=== PATIENT | female | born 1970 | race Caucasian/White ===

== ENCOUNTER → 2017-08-01 | Outpatient (CLI) | payer BC ==
--- NOTE | 2017-08-02 04:26 | HKNOTE ---
DATE OF SERVICE: 08/01/2017 MAIN COMPLAINT: Pain in the right knee. HISTORY OF MAIN COMPLAINT: The patient is a 47-year-old female, who complains of pain in her right knee which had a sudden onset about 1-1/2 months ago. There was no history of injury. She was simply walking out of the bank when there was a sudden onset of pain, which felt "like somebody stuck a knife in my knee." It was very difficult for her to walk. She saw Dr. Rosario last week. He obtained x-rays and told her that a large part of her problem was the arthritis in her knee. He gave her a cortisone injection into the knee. The patient had previously seen her kiln fireman, Dr. Liliam Tan, who ordered an MRI scan of the knee. The patient gets pain in the knee with every step that she takes. The knee feels unstable at least once a day. The knee swells. There has not been any locking. The pain is particularly aggravated by walking down stairs, and that is also when the knee feels particularly unstable. Her pain is aggravated by walking, weightbearing, and stair climbing. She is not taking any medications for the pain. She does not have a history of problems with the lower back. She has been diagnosed with sciatica, but has never had an MRI scan of the spine. She gets acupuncture treatments for her back. She sometimes gets numbness and tingling in her feet. She can't walk more than a block at a time without stopping. She is not using a walking aid. I guess she does limp all the time. PAST ORTHOPEDIC HISTORY: Negative. PRIOR CORTISONE INTAKE: One cortisone injection, as noted above. ALCOHOL INTAKE: None. OTHER JOINT PROBLEMS: None. BLOOD TESTS: None. PRIOR INJURIES TO HIPS OR KNEES: None. 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 PAST MEDICAL HISTORY: Hypertension PAST SURGICAL HISTORY: Appendectomy and ectopic . DRUG ALLERGIES: None. MEDICATIONS: None listed. FAMILY HISTORY: Noncontributory. SYSTEMS REVIEW: Prone to heartburn, tingling sensations in the lower right leg and foot. PATIENT CONSUMER MARKETER: Amanda Byrnes. PHYSICAL EXAMINATION: GENERAL: An overweight 47-year-old female. She is otherwise fit looking. VITAL SIGNS: Height 5 foot 5; weight 135 pounds. Blood pressure 135/100 and temperature 98.3. GAIT: The patient's gait is quite markedly antalgic. She walks without a walking aid. HIP EXAMINATION: Both hips have a full range of motion without pain. RIGHT KNEE EXAMINATION: Extension is full but painful. Flexion is full; 1+ effusion. Marked tenderness over the medial joint line. IMAGING: X-rays of the right knee (brought with her) show moderate narrowing of the medial joint space of the right knee. An MRI scan of the right knee obtained on 07/12/2017, is reported by the radiologist as showing "complex tear of the posterior horn of medial meniscus." The tear involves meniscal root attachment of posterior horn of the meniscus as well as abnormal signal intensity reaching the inferior articulating surface of the foot at the peripheral zone. DISCUSSION: The suddenness of onset of this patient's pain and instability suggests that this is more likely to be a torn meniscus than a simple arthritic problem. The MRI pictures were reviewed, and these seem to be fairly convincing. DIAGNOSES: 1. Degenerative osteoarthritis of the right knee. 2. Probable torn medial meniscus of the right knee. 3. Hypertension. MANAGEMENT: The patient is advised that, in my opinion, she will need to have an arthroscopic operation on the knee. The surgery and some of the major possible complications were discussed with her in a fair amount of detail. The procedure and postoperative course were discussed with her in a fair amount of detail. The patient's surgery will be scheduled by my health center assistant, Gumaro , in the very near future. The patient has difficulty getting off work, and she will have to work with Gumaro to pick a time that would be appropriate for her. Dictated By: Jose Juan Garcia MD /aury/freda /Document#: [id number]
== END | disposition home or self-care (01) ==
LOC: HKI 16:43
DX: M25.561 Pain in right knee (principal); M17.11 Unilateral primary osteoarthritis, right knee; I10 Essential (primary) hypertension
CPT/HCPCS: G0463

== ENCOUNTER → 2017-12-01 | Outpatient (CLI) | END | disposition home or self-care (01) ==